=== PATIENT | female | born 1960 | race Caucasian/White ===

== ENCOUNTER → 2025-01-14 10:22 | Outpatient (REF) | payer MEDICARE, OTHER, SELFPAY ==
[2025-01-14 11:22] LABS: % Basophils 0.4 % (0-2); % Eosinophils 1.2 % (0-6); % Immature Granulocytes 0.4 % (0-0.5); % Lymphocytes 25.8 % (20.5-51.1); % Monocytes 5.4 % (1.7-9.3); % Neutrophils 66.8 % (42.2-75.2); Absolute Eosinophils 0.1 10^3/uL (0-0.7); Absolute Lymphocytes 2.4 10^3/uL (1.2-3.4); Absolute Monocytes 0.5 10^3/uL (0.1-0.6); Absolute Neutrophils 6.3 10^3/uL (1.4-6.5); Hematocrit 44.8 % (37.0-47.0); Hemoglobin 15.5 g/dL (12.0-16.0); Mean Corp Hgb Conc. 34.6 g/dL (33.0-37.0); Mean Corpuscular Hgb 32.3 pg (27.0-31.0); Mean Corpuscular Volume 93.3 fL (81.0-99.0); Mean Platelet Volume 9.5 fL (7.4-10.4); Nucleated Red Blood Cells % 0 %; Platelet Count 245 10^3/uL (130-400); Red Cell Dist. Width 12.2 % (11.5-14.5); White Blood Cell Count 9.5 10^3/uL (4.8-10.8)
[2025-01-14 13:28] LABS: ALT (SGPT) 54 U/L (0-35); AST (SGOT) 36 U/L (14-36); Albumin 4.8 g/dl (3.5-5.0); Alkaline Phosphatase 90 U/L (38-126); Blood Urea Nitrogen 17 mg/dl (7-17); Carbon Dioxide 27 mmol/L (22-30); Chloride 104 mmol/L (98-107); Glucose 93 mg/dl (70-99); HDL Cholesterol 46 mg/dl; LDL Cholesterol, Calculated 111 mg/dl; Potassium 4.6 mmol/L (3.5-5.1); Sodium 141 mmol/L (135-145); Total Bilirubin 0.6 mg/dl (0.2-1.3); Total Cholesterol 202 mg/dl (50-199); Total Protein 7.4 g/dl (6.3-8.2); Triglyceride 225 mg/dl (10-149); Very Low Density Lipoprotein 45 mg/dl (0-30); eGFR > 60.00
[2025-01-14 13:32] LABS: TSH 3.96 uIU/ml (0.47-4.68)
== END ==
LOC: REG 10:22
PROVIDERS: ATTENDING PHYSICIAN Family Medicine
DX: E78.2 Mixed hyperlipidemia (principal); Z86.73 Personal history of transient ischemic attack (TIA), and cerebral infarction without residual deficits
CPT/HCPCS: 36415; 80053; 80061; 84443; 85025

== ENCOUNTER 2025-04-03 15:14 | Emergency (ER) | payer MEDICARE, OTHER, SELFPAY ==
[2025-04-03 15:14] VITALS: BMI 34.6
[2025-04-03 15:16] VITALS: BP 129/69
[2025-04-03 15:39] LABS: % Basophils 0.3 % (0-2); % Eosinophils 1.7 % (0-6); % Immature Granulocytes 0.3 % (0-0.5); % Lymphocytes 33.6 % (20.5-51.1); % Monocytes 6.4 % (1.7-9.3); % Neutrophils 57.7 % (42.2-75.2); Absolute Eosinophils 0.2 10^3/uL (0-0.7); Absolute Lymphocytes 3.1 10^3/uL (1.2-3.4); Absolute Monocytes 0.6 10^3/uL (0.1-0.6); Absolute Neutrophils 5.4 10^3/uL (1.4-6.5); Hematocrit 44.1 % (37.0-47.0); Hemoglobin 15.6 g/dL (12.0-16.0); Mean Corp Hgb Conc. 35.4 g/dL (33.0-37.0); Mean Corpuscular Hgb 32.2 pg (27.0-31.0); Mean Corpuscular Volume 91.1 fL (81.0-99.0); Mean Platelet Volume 9.5 fL (7.4-10.4); Nucleated Red Blood Cells % 0 %; Platelet Count 287 10^3/uL (130-400); Red Blood Cell Count 4.84 10^6/uL (4.20-5.40); Red Cell Dist. Width 11.8 % (11.5-14.5); White Blood Cell Count 9.3 10^3/uL (4.8-10.8)
[2025-04-03 16:07] LABS: ALT (SGPT) 44 U/L (0-35); AST (SGOT) 32 U/L (14-36); Albumin 4.2 g/dl (3.5-5.0); Alkaline Phosphatase 81 U/L (38-126); Blood Urea Nitrogen 19 mg/dl (7-17); Calcium 9.6 mg/dl (8.4-10.2); Carbon Dioxide 23 mmol/L (22-30); Chloride 109 mmol/L (98-107); Glucose 177 mg/dl (70-99); Potassium 4.3 mmol/L (3.5-5.1); Sodium 138 mmol/L (135-145); Total Bilirubin 0.4 mg/dl (0.2-1.3); Total Protein 6.9 g/dl (6.3-8.2); eGFR > 60.00
[2025-04-03 16:17] LABS: Troponin I < 0.012 ng/ml
[2025-04-03 16:48] VITALS: BP 109/74
--- NOTE | 2025-04-03 16:52 | ED.GENMED ---
History of Present Illness
General
Chief Complaint: Chest Pain
Source: patient
Exam Limitations: none
Time Seen by Provider: 04/03/25 16:51
Nursing documentation reviewed up to this point in time: agreed with
History of Present Illness
History of Present Illness:
64-year-old female with history of HLD, GERD, cervical cancer, hysterectomy, smoker, here for 12 days of cough, developed chest heaviness 11 a.m. today.
Went to 3 days ago and started on Doxycycline 100 BID, she's had 8 doses with no improvement. Denies fever/chills, denies n/v/d/c.
Past History
Past History
ED Past Medical History: Cancer (Cervical cancer at age 25 treated with cervical conization), GERD, Hypercholesterolemia and Other (Internal carotid aneurysm)
ED Past Surgical History: Brain (Brain aneurysm stenting May 2020) and Gynecological (Cervical conization at age 25, hysterectomy at age 50 for dysfunctional uterine bleeding.)
Social History
Tobacco: Smoker (/ ppd)
Alcohol: None
Drug: None
Personal:
Living: with family
Employment: Employed
Family History
Family History: CAD (Mother and father) and Other (Father of CVA at age 88. Mother in her 80s due to cirrhosis of the liver, platelet disorder); Negative Early CAD
Review of Systems
Review of Systems
Allergies reviewed?: Yes
All Other Systems: ROS reviewed and negative except as documented in HPI and ROS
Constitutional: Reports fatigue; Denies fever or chills
EENT: Denies sore throat
Respiratory: Reports cough; Denies trouble breathing
Cardiac: Reports chest pain; Denies diaphoresis or palpitations
ABD/GI: Denies abdominal pain, nausea, vomiting or diarrhea
Musculoskeletal: Reports no symptoms
Skin: Reports no symptoms
Neurological: Reports no symptoms
Phy Exam
Physical Exam
Physical Exam:
GENERAL: No acute distress. A&Ox3.
CONSTITUTIONAL: Afebrile.
EYES: clear, conjunctivae normal
ENMT: moist mucus membranes, Pharynx nl
RESPIRATORY: Regular respirations, nonlabored, coarse cough, lungs clear
CARDIOVASCULAR: Regular rate and rhythm, no murmurs, no rubs. with diminished sounds throughout. No hypoxemia
GI: Soft, nontender, normal BS
MUSCULOSKELETAL: Moves with ease. Well perfused.
SKIN: Warm, dry, pink
PSYCH: Normal mood and affect. Well kept, interactive and appropriate
NEUROLOGIC: Awake, alert and oriented. No focal neurological deficits
Scores
Heart Score for Chest Pain Patients
STEMI patient?: Not applicable
Course
Orders/Labs/Results
Orders:
Orders
04/03/25 15:22
Electrocardiogram (*1) Urgent
Reason for Study: Other
Other Reason for Exam: Respiratory Distress
EKG- Treatment ONCE
CR Chest - 2 Views Urgent
Comment:
Reason For Exam: respiratory distress
O2 Therapy [RESP] Urgent
Titrate/Wean O2 to maintain O2 sat greater than (%): 93
Special Instructions: TO MAINTAIN CONTINUOUS O2 SATS >/= 93%
Pulse Ox/cont/shift [RESP] Urgent
Quantity: 1
Special Instructions: continuous pulse ox
04/03/25 15:28
Complete Blood Count/With Diff Urgent
Comprehensive Metabolic Panel Urgent
Troponin I Urgent
04/03/25 16:53
Ipratropium/Albuterol Sulfate [Duoneb] 3 ml INH R NOW ONE
04/03/25 17:02
Dexamethasone [Decadron] 10 mg PO NOW STA
Abnormal Lab Results
04/03/25
15:28
MCH 32.2 H pg
(27.0-31.0)
Chloride 109 H mmol/L
(98-107)
BUN 19 H mg/dl
(7-17)
Glucose 177 H mg/dl
(70-99)
ALT 44 H U/L
(0-35)
04/03/25 15:28
04/03/25 15:28
Vital Signs
Initial and Last Documented VS:
Initial Vital Signs
Temp Pulse Resp BP Pulse Ox
98.7 F 96 18 129/69 92
04/03/25 15:16 04/03/25 15:16 04/03/25 15:16 04/03/25 15:16 04/03/25 15:16
Last Documented Vital Signs
Temp Pulse Resp BP Pulse Ox
98.7 F 87 17 120/70 95
04/03/25 15:16 04/03/25 17:15 04/03/25 17:15 04/03/25 17:00 04/03/25 17:35
MDM/Problems Addressed
Differential Diagnosis Includes:
Bronchitis, COPD
MDM/Problems Addressed:
64-year-old female with history of HLD, GERD, cervical cancer, hysterectomy, smoker, here for 12 days of cough, developed chest heaviness 11 a.m. today.
Went to 3 days ago and started on Doxycycline 100 BID, she's had 8 doses with no improvement. Denies fever/chills, denies n/v/d/c.
EKG NSR
No hypoxemia
CXR NAD
Labs unremarkable.
Duoneb, steroids ordered
5:45 PM:
Patient feeling much better after DuoNeb
Discussed quitting smoking and if she wants me to prescribe an aid to help her quit smoking and she declines, she is not ready to quit smoking but says she will cut down
Prescription for albuterol inhaler and steroid taper sent to her pharmacy
Refer to pulmonology
*Pulse Oximetry
SaO2: 98
Oxygen Mode of Delivery: Room air
Patient hypoxic: no
*EKG
EKG Intrepretation Date: 04/03/25
Interpretation: normal
Heart Rate: 79
Rate: normal
Rhythm: sinus
[place]: normal axis
Interval: normal interval
QRS Pattern: normal QRS
Ischemia: no ischemia
*Critical Care Note
Total Time (30-74mins, 75-104mins- exclusive of procedures): Not Applicable
ED Attending Note
-
Portions of this chart may have been created with voice recognition software.� Occasional wrong word or��sound alike� substitutions may have occurred due to the inherent limitations of voice recognition software.
Discharge Plan
Departure
Patient Disposition: Home (Routine Discharge)
Date of Disposition: 04/03/25
Time of Disposition: 17:46
Patient with high blood pressure during this ER visit?: No
Condition: Good
Discharge Problem:
Bronchitis due to tobacco use
Instructions: Harmful health effects of smoking, Quitting smoking - ED discharge instructions, Bronchitis in adults - ED discharge instructions
Prescriptions:
New
albuterol sulfate [Ventolin HFA] 90 mcg/actuation HFA aerosol inhaler
2 puff inhalation QID PRN (Reason: shortness of breath or wheezing) Qty: 8.5 0RF
prednisone 10 mg Tablet
See Rx Instructions .ROUTE .COMPLEX Qty: 30 0RF
Rx Instructions:
Take By Mouth:
40 mg daily x3 days, 30 mg daily x3 days,
20 mg daily x3 days, 10 mg daily x3 days.
No Action
sennosides [senna] 1 TABLET tablet
2 tab PO HS Qty: 60 0RF
Rx Instructions:
Two tabs by mouth at bedtime daily.
acetaminophen 325 MG tablet
650 mg PO Q6HPRN PRN (Reason: mild pain/ fever>100.5F) 0RF
Rx Instructions:
Two tabs by mouth (650 mg) every 4 hours as needed for pain or fever.
doxycycline hyclate 100 MG capsule
100 mg PO BID 10 Days Qty: 20 0RF
Rx Instructions:
One capsule by mouth twice daily x 10 days.
tramadol 50 MG tablet
25 mg PO Q6HPRN PRN (Reason: mod /severe pain) Qty: 20 0RF
Rx Instructions:
One tab by mouth every 6 hours as needed for moderate - severe pain.
clopidogrel [Plavix] 75 MG tablet
1 tab PO DAILY Qty: 0 0RF
Rx Instructions:
One tab by mouth once daily.
aspirin [Aspir-Low] 81 MG tablet,delayed release (DR/EC)
1 tab PO DAILY Qty: 0 0RF
Rx Instructions:
One tab by mouth once daily.
promethazine 25 MG tablet
12.5 mg PO Q6HPRN PRN (Reason: headahce, nausea, aura) Qty: 10 0RF
Referrals:
Dirk Bertrand MD [Active, Pulmonary Medicine] - Next open appointment
UNKNOWN - PT DOES,NOT KNOW [Family Provider]
Activity Restrictions/Additional Instructions:
As we discussed, please consider quitting smoking, I am concerned that you are developing emphysema.
I sent a prescription to your pharmacy for an albuterol inhaler as well as a prednisone taper.
Call and make an appointment with the pulmonary doctor
Interventions
Interventions:
*Risk Screen - Suicide Last Done: 04/03/25 15:16
*General Assessment Last Done: 04/03/25 17:59
*Neglect/Abuse Screening Last Done: 04/03/25 15:16
*ED- Fall Risk Assessment Last Done: 04/03/25 17:59
*ED COVID-19 Vaccine History Last Done: 04/03/25 17:59
*Nursing Disposition Last Done: 04/03/25 17:59
ED- Cardiac Assessment Last Done: 04/03/25 16:50
Discharge Date and Time
Discharge Date/Time: 04/03/25 18:02
Print Language: GREENLANDIC
[2025-04-03] MEDS: DUONEB 3 ML INH (16:56)
[2025-04-03 17:00] VITALS: BP 120/70
[2025-04-03] MEDS: DECADRON 10 MG PO (17:30)
== END 2025-04-03 18:02 | disposition home or self-care (01) ==
LOC: EMR 15:14
PROVIDERS: Student in an Organized Health Care Education/Training Program; EMERGENCY PHYSICIAN Emergency Medicine
DX: J41.0 Simple chronic bronchitis (principal); E78.00 Pure hypercholesterolemia, unspecified; K21.9 Gastro-esophageal reflux disease without esophagitis; F17.210 Nicotine dependence, cigarettes, uncomplicated
CPT/HCPCS: 99285; 94640; 71046; 80053; 84484; 85025; 93005

== ENCOUNTER → 2025-06-25 11:11 | Outpatient (REF) | payer MEDICARE, OTHER, SELFPAY | LOC: PAVMRI 11:11 | PROVIDERS: ATTENDING PHYSICIAN Neurological Surgery; FAMILY PHYSICIAN Family Medicine | DX: I67.1 Cerebral aneurysm, nonruptured (principal) | CPT/HCPCS: 70544 ==

== ENCOUNTER → 2025-07-27 11:02 | Outpatient (REF) | payer MEDICARE, OTHER, SELFPAY ==
[2025-07-27 12:05] LABS: Hematocrit 44.8 % (37.0-47.0); Hemoglobin 15.4 g/dL (12.0-16.0); Mean Corp Hgb Conc. 34.4 g/dL (33.0-37.0); Mean Corpuscular Volume 93.5 fL (81.0-99.0); Nucleated Red Blood Cells % 0 %; Platelet Count 260 10^3/uL (130-400); Red Cell Dist. Width 12.1 % (11.5-14.5)
[2025-07-27 12:17] LABS: INR 0.98; PT 13.3 Sec (11.4-14.6)
[2025-07-27 12:18] LABS: APTT 27.2 Sec (23.4-35.0)
[2025-07-27 12:39] LABS: Blood Urea Nitrogen 18 mg/dl (7-17); Calcium 9.6 mg/dl (8.4-10.2); Carbon Dioxide 25 mmol/L (22-30); Chloride 108 mmol/L (98-107); Glucose 131 mg/dl (70-99); Potassium 4.4 mmol/L (3.5-5.1); Sodium 140 mmol/L (135-145); eGFR > 60.00
== END ==
LOC: RCS 11:02
PROVIDERS: ATTENDING PHYSICIAN Internal Medicine; FAMILY PHYSICIAN Family Medicine; OTHER PHYSICIAN Neurological Surgery; OTHER PHYSICIAN Psychiatry & Neurology Neurology
DX: Z01.818 Encounter for other preprocedural examination (principal); N17.9 Acute kidney failure, unspecified; A41.9 Sepsis, unspecified organism
CPT/HCPCS: 36415; 80048; 85025; 85610; 85730; 93005